=== PATIENT | female | born 1925 | race Caucasian/White ===

== ENCOUNTER 2016-07-05 14:36 | Emergency (ER) | payer OTHER ==
--- NOTE | 2016-07-05 15:26 | DIAGNOSTIC IMAGING REPORT ---
PROCEDURE: XR CHEST 1 VIEW INDICATION: COUGH TECHNIQUE: Portable AP view 3:14 p.m. COMPARISON: Chest 03/13/2014 08/02/2012 12/04/2011 and 09/19/2011 FINDINGS: Mild cardiomegaly and pulmonary vascular congestion with borderline/mild interstitial changes. No acute infiltrates. IMPRESSION: 1. Mild cardiomegaly and borderline/mild congestive heart failure. 2. No acute infiltrates
--- NOTE | 2016-07-05 16:48 | ED ORDER SUMMARY ---
..... Patient: SASCHA DUNN OrderSheet [facility] VisitID: [id number] [address] [place] [address] 89y, F Registration Date/Time: 07/05/2016 ORDER SHEET Weight: 69.3 kg (stated) Allergies: Iodine, Novacaine GENERAL ORDERS: Chest 1V Urgent (14:57 07/05/2016 Augusta MOORE) (Ack 15:07 Lisa) (16:44 ASchmuck) Spindraw Operator (Continuous) (14:57 07/05/2016 Augusta MOORE) (15:08 ASchmuck) CBC w Diff Urgent (14:57 07/05/2016 Augusta MOORE) (Ack 15:07 Lisa) (15:08 ASchmuck) CMP Urgent (14:57 07/05/2016 Augusta MOORE) (Ack 15:07 Lisa) (15:08 ASchmuck) UA-Culture if indicated Urgent (14:57 07/05/2016 Augusta MOORE) (Ack 15:07 Lisa) (15:08 ASchmuck) Amylase Urgent (14:57 07/05/2016 Augusta MOORE) (Ack 15:07 Lisa) (15:08 ASchmuck) Lipase Urgent (14:57 07/05/2016 Augusta MOORE) (Ack 15:07 Lisa) (15:08 ASchmuck) CPK Urgent (14:57 07/05/2016 Augusta MOORE) (Ack 15:07 Lisa) (15:08 ASchmuck) Troponin-I Urgent (14:57 07/05/2016 Augusta MOORE) (Ack 15:07 Lisa) (15:08 ASchmuck) BNP Urgent (14:57 07/05/2016 Augusta MOORE) (Ack 15:07 Lisa) (15:08 ASchmuck) Pulse oximeter (14:57 07/05/2016 Augusta MOORE) (15:08 ASchmuck) EKG - ER Stat (14:57 07/05/2016 Augusta MOORE) (15:40 LTapper) MEDICATION ORDERS: Clonidine PO 0.2 mg (NOW) (16:41 07/05/2016 Augusta MOORE) (Ack 16:44 ASchmuck) (16:54 ASchmuck) IV FLUIDS: IV Saline Lock (14:57 07/05/2016 Augusta MOORE) (15:08 ASchmuck) Lasix IV 20 mg (NOW) (16:41 07/05/2016 Augusta MOORE) (Ack 16:44 ASchmuck) (16:55 ASchmuck) ORDER SHEET NOTES: [Electronically signed by Tucker Baker MD (18:38 07/05/2016)] [Electronically signed by Mike Lennon R.N. (19:07 07/05/2016)] [Electronically locked/signed by Mike Lennon R.N. (19:07 07/05/2016)]
--- NOTE | 2016-07-05 16:48 | ED NURSING NOTES ---
Clinical Report - Nurses [place] [address] [place] [address] 07/05/2016 14:37 Patient: SASCHA DUNN TRIAGE Triage time 14:40. Acuity: LEVEL 3. Chief Complaint: WEAKNESS and COUGH. Alert. No acute distress. MARIZOL COMA SCORE: Marizol Coma Scale: 15- eyes open spontaneously (4); best verbal response- oriented x 4 (5); best motor response- obeys commands (6). --14:47 Yasmine Burgess R.N. 14:40 07/05/16. BP: 172/72. HR: 78. RR: 21. O2 saturation: 100% on room air. Temp: 98.2 F (oral). Pain level now: cannot qualify. --14:47 Yasmine Burgess R.N. Weight: 69.3 kg stated. Height/Length: 63 inches Per Patient. BMI: 27.1. --14:44 Yasmine Burgess R.N. Medications AmLODIPine Besylate Oral 2.5 mg, 1-2 times daily. --15:41 Rhonda Wing Aspir-81 Oral (Tablet Delayed Release 81 mg) 1 tablet, daily. --15:42 Rhonda Wing Calcium + D3 Oral. --15:46 Rhonda Wing Furosemide Oral 40 mg, daily. --15:47 Rhonda Wing Glucosamine Oral (unknown dose). --15:47 Rhonda Wing Irbesartan Oral 300 mg (1/2-1 tab daily). --15:47 Rhonda Wing Metolazone Oral (Tablet 2.5 mg), daily. --15:48 Rhonda Wing Potassium Oral 10 mEq, daily. --15:48 Rhonda Wing Tylenol Oral 325 mg, daily. --15:49 Rhonda Wing CloNIDine HCl Oral. --16:31 Tucker Baker MD The following entry was struck by Tucker Baker MD, 16:31 (07/05/16) Reason - other. <<STRICKEN ENTRY-- Anastrozole Oral (Tablet 1 mg) 1 tablet, daily. --15:41 Rhonda Wing --END STRIKE>> The following entry was struck by Tucker Baker MD, 16:31 (07/05/16) Reason - other. <<STRICKEN ENTRY-- Sertraline HCl Oral 25 mg, daily. --15:49 Rhonda Wing --END STRIKE>>. Allergies Iodine. Definite Moderate(rash) Novacaine . Definite Moderate(rash) --14:42 Yasmine Burgess R.N. History Arrived by private vehicle. Historian: EMS and patient. Primary physician (Claudia). Onset. (about 2 weeks to 2 months). She has had a cough. SOCIAL HX: Smoker- current status unknown (no). No alcohol use or drug use. LEARNING NEEDS ASSESSMENT: The learning needs assessment revealed no barriers. FALL RISK ASSESSMENT: Fall risk assessment completed. Risk factors identified include patient age greater than 65 years and impairment of mobility and hearing. Fall interventions initiated. Patient placed on stretcher. Side rails up x2. Brakes on Bed in low position. FUNCTIONAL ASSESSMENT: Functional assessment performed: independent with the activities of daily living; mobility impairment present- this mobility impairment is an ongoing problem; hearing impairment present- this hearing impairment is an ongoing problem. --14:47 Yasmine Burgess R.N. PROBLEMS: Herpes Zoster. Sinus Tachycardia. Abnormal Test. Breast Cancer. Hyperkalemia. Hyponatremia. UTI - Urinary Tract Infection. Dehydration. Renal Insufficiency. Heart Disease. Palpitations. Gastroesophageal Reflux. Hypertension. Immunizations. --14:43 Yasmine Burgess R.N. Congestive Heart Failure. Tricuspid valve disorder. Depression. Basal cell carcinoma of skin. Post herpatic polyneuropathy. Bipolar Disorder. --15:51 Rhonda Wing. ADDITIONAL SURGERIES: Appendectomy. Eyes cataracts. Hysterectomy. Lumpectomy of breast. Tonsillectomy. --14:43 Yasmine Burgess R.N. Assessment GENERAL / NEURO / PSYCH: Alert. Oriented X 4. Appears in no acute distress. Patient appears calm and cooperative. RESPIRATORY: Respirations not labored. CVS: Cardiac rhythm: sinus rhythm; occasional ectopic beats. --14:47 Yasmine Burgess R.N. Interventions ID and allergy band on patient. To treatment room. --14:47 Yasmine Burgess R.N. PHYSICAL ASSESSMENT 15:10 07/05/16. To room via stretcher. Patient gowned. GENERAL / NEURO / PSYCH: Alert. Oriented X 4. Appears in no acute distress. HEENT: Pupils equal, round and reactive to light. No facial asymmetry noted. Mucous membranes are pink. RESPIRATORY: Respirations not labored. Chest nontender. CVS: Capillary refill less than 2 seconds. Pulses within normal limits. GI / : Abdomen soft and nontender and normal bowel sounds. SKIN: Skin intact. Skin is warm and dry. Normal skin turgor. --15:10 Rhonda Wing. NURSING PROGRESS NOTES 14:53 07/05/2016 Site #1 started via IV in the left antecubital space with an 20g angiocath, with aseptic technique and good blood return; one attempt. Blood drawn: rainbow set. Labeled in the presence of the patient and sent to the lab. Saline lock flushed with 10 mL saline. --14:53 Rhonda Wing 15:07/05/16. The plan of care for this patient has been created. air sampling and monitoring, pulse oximeter and NIBP monitor placed on patient; rn cardiac rehab- Lead II and V5; monitor alarms on. Patient gowned. Head of bed elevated. Reassurance given. Patient ID band checked for patient name and birthdate: patient confirmed. Catheterized urine collected with return of yellow-colored clear urine; sample sent to lab. Specimen labeled in the presence of the patient (Done with Janel Marion RN). Two patient identifiers checked. Call light placed in reach. Side rails up x 1. Bed placed in lowest position. Brakes of bed on. Patient ready for evaluation- chart flagged and ED physician notified. --15:09 Rhonda Wing 15:10 07/05/16. Portable chest x-ray performed and shown to the ED physician. ( Patient's daughter is at bedside.). --15:10 Rhonda Wing 15:40 07/05/16. BP: 174/68. HR: 74. O2 saturation: 95%. --15:40 Rhonda Wing EKG time: (15:37). EKG was performed by a tech and shown to the ED physician. --16:11 Rihc Ace 16:54 07/05/2016 Clonidine PO Tablets 0.2 mg given. Allergies verified and confirmed 5 rights. --16:54 Rhonda Wing 16:55 07/05/2016 Lasix IVP 20 mg given over 2 minute(s) via site #1. Allergies verified and confirmed 5 rights. IV patency established. IV site checked: no pain, redness, or swelling. IV flushed thoroughly pre- and post-medication administration. IVP given by RN. --16:55 Rhonda Wing 16:56 07/05/16. BP: 172/67. HR: 79. RR: 20. O2 saturation: 97%. Temp: 97.8 F. Pain level now 0/10. --16:56 Rhonda Wing 17:06 07/05/16. ( Pt assisted to bedside commode with RN.). --17:06 Rhonda Wing 17:08 07/05/16. Care transferred and report given (Mike Lares, RN). --17:08 Rhonda Wing 17:00 07/05/16. BP: 178/71. HR: 82. RR: 19. O2 saturation: 98% on room air. Pain level now: 0/10. --19:06 Mike Lennon R.N. DISPOSITION / DISCHARGE 17:40 07/05/16. BP: 131/55. HR: 71. RR: 16. O2 saturation: 98% on room air. Temp: 98.2 F (oral). Pain level now: 0/10. --18:58 Mike Lennon RoTri Departure time: 1744. --18:59 Mike Lennon R.N. 17:45. No learning barriers present. Discharge instructions provided and reviewed with the patient. Reviewed medication(s) (continue your usual medications). Reviewed referral to family practice for followup. Patient and family verbalized understanding. Written instructions provided in Arabic. The patient was discharged by the physician. She was discharged home and accompanied by family. She left the Emergency Department ambulatory and via private vehicle. Family member driving. --19:02 Mike Lennon R.N. Locked/Released at 07/05/2016 19:07 by Mike Lennon R.N.
--- NOTE | 2016-07-05 16:48 | ED CLINICAL REPORT ---
Clinical Report - Physicians/Mid Levels [facility] [address] [place] [address] 07/05/2016 14:37 Patient: SASCHA DUNN Time Seen: 14:56. Arrived- By private vehicle. Historian- patient. HISTORY OF PRESENT ILLNESS Chief Complaint: WEAKNESS. This started about 2 days ago and is now gone. It was gradual in onset and has been intermittent. No weight loss or headache. She has had fatigue and generalized weakness. REVIEW OF SYSTEMS No chills, fever, sweats, calf pain or chest pain. No difficulty breathing, palpitations, abdominal pain, constipation or diarrhea. No nausea, vomiting or urinary problems. She has had a moderate cough productive of yellow sputum. She has had moderate pedal edema. It has been similar to previous symptoms. She has had mildly altered mental status reported by family: confused. (recently - gone today). All systems otherwise negative, except as recorded above. PAST HISTORY PCP - Claudia. Problems: Congestive Heart Failure. Tricuspid valve disorder. Depression. Basal cell carcinoma of skin. Post herpatic polyneuropathy. Bipolar Disorder. Herpes Zoster. Sinus Tachycardia. Breast Cancer. Hyperkalemia. Hyponatremia. UTI - Urinary Tract Infection. Dehydration. Renal Insufficiency. Heart Disease. Palpitations. Gastroesophageal Reflux. Hypertension. Additional Surgeries: Appendectomy. Eyes cataracts. Hysterectomy. Lumpectomy of breast. Stapes. Tonsillectomy. Medications: CloNIDine HCl Oral. Tylenol Oral 325 mg, daily. Potassium Oral 10 mEq, daily. Metolazone Oral (Tablet 2.5 mg), daily. Irbesartan Oral 300 mg (1/2-1 tab daily). Glucosamine Oral (unknown dose). Furosemide Oral 40 mg, daily. Calcium + D3 Oral. Aspir-81 Oral (Tablet Delayed Release 81 mg) 1 tablet, daily. AmLODIPine Besylate Oral 2.5 mg, 1-2 times daily. Allergies: Iodine. Definite Moderate(rash) Novacaine . Definite Moderate(rash). SOCIAL HISTORY Never smoker. No alcohol use or drug use. Is a local resident. Resides in a house. She lives alone. Has good social support. FAMILY HISTORY Cancer in first-degree relative (mother, father and sibling). ADDITIONAL NOTES The nursing notes have been reviewed. PHYSICAL EXAM Vital Signs: 07/05/2016 14:40 BP: 172/72. HR: 78. RR: 21. O2 saturation: 100%. Temp: 98.2 F. Have been reviewed. Appearance: Alert. Anxious. Eyes: Pupils equal, round and reactive to light. ENT: Pharynx normal. Neck: Normal inspection. Soft left-sided carotid bruit present (this may be a projected cardiac murmur). Neck supple. No JVD. CVS: 2/6 systolic murmur. Respiratory: No respiratory distress. Breath sounds normal. Abdomen: No visible injury. Soft and nontender. Bowel sounds normal. No organomegaly. No mass. Skin: Skin warm and dry. Normal skin color. Normal skin turgor. Extremities: Bilateral mild pitting edema of the lower extremities. No calf tenderness. Neuro: No motor deficit. No sensory deficit. LABS, X-RAYS, AND EKG EKG: Rate: 71. Left anterior fascicular block. Q waves in lead V1, V2 and V3. EKG unchanged when compared with prior EKG. (14 Mar 2014). Chest X-ray: (IMPRESSION: 1. Mild cardiomegaly and borderline/mild congestive heart failure. 2. No acute infiltrates). The X-rays were interpreted by the radiologist and contemporaneously by me. Laboratory Tests: UA-Culture if indicated: (RITU: 07/05/2016 15:07) ( MsgRcvd 07/05/2016 15:36) Final results Test Result Flag Units (Reference) URINE COLOR YELLOW URINE APPEARANCE CLEAR URINE GLUCOSE NEGATIVE (NEGATIVE) URINE BILIRUBIN NEGATIVE (NEGATIVE) URINE KETONE NEGATIVE (NEGATIVE) URINE SPECIFIC GRAVITY <= 1.005 L (1.010-1.030) URINE PH 6.0 (5.0-8.0) URINE PROTEIN NEGATIVE (NEGATIVE) URINE UROBILINOGEN 0.2 EU/dL (0.2-1.0) URINE NITRITE NEGATIVE (NEGATIVE) URINE BLOOD NEGATIVE (NEGATIVE) URINE LEUK ESTERASE NEGATIVE (NEGATIVE) URINE RBC NONE SEEN rbc/hpf (0-1) URINE WBC RARE wbc/hpf (0-1) URINE EPITHELIAL CELLS 0-1 EPI/hpf (0-5) URINE BACTERIA NONE SEEN (NONE SEEN) URINE COMMENT CULT NOT INDICATED URINE CULTURES ARE SET-UP BASED ON THE FOLLOWING CRITERIA:POSITIVE NITRITEPOSITIVE LEUKOCYTE ESTERASEGREATER THAN 10 WHITE BLOOD CELLSMODERATE (2+) OR GREATER BACTERIA CBC w Diff: (RITU: 07/05/2016 14:51) ( [facility] 07/05/2016 15:12) Final results Test Result Flag Units (Reference) WHITE BLOOD COUNT 6.6 K/uL (4.5-11.5) RED BLOOD COUNT 4.12 M/uL (4.00-5.20) HEMOGLOBIN 11.7 L gm/dL (12.0-16.0) HEMATOCRIT 35.3 L % (36.0-46.0) MEAN CELL VOLUME 86 fL (80-100) MEAN CORPUSCULAR HGB 28 pg (26-34) MEAN CORPUSCULAR HGB CONC 33 g/dL (31-37) RED CELL DISTRIBUTION WIDTH 13.9 % (11.6-14.8) PLATELET COUNT 199 K/uL (150-400) NEUTROPHIL % 67.2 % (50-75) LYMPH % 20.4 L % (25-40) MONO % 9.5 % (3-14) EOSINOPHIL % 2.6 % (0-4) BASOPHIL % 0.3 % (0-2) BNP: (RITU: 07/05/2016 14:51) ( [facility] 07/05/2016 15:35) Final results Test Result Flag Units (Reference) B-TYPE NATRIURETIC PEPTIDE 419 H pg/ml (5-100) CMP: (RITU: 07/05/2016 14:51) ( [facility] 07/05/2016 15:18) Final results Test Result Flag Units (Reference) GLUCOSE 109 mg/dL (70-110) BUN 32 H mg/dL (7-18) CREATININE 1.4 H mg/dL (0.6-1.3) Estimated GFR 37.72 mL/min Estimated GFR- 45.71 mL/min Note: Persistent reduction over 3 months in eGFR<60 mL/min/1.73 m2 defines CKD. Patients with eGFR values>=60 mL/min/1.73 m2 may also have CKD if evidence ofpersistent proteinuria. Additional information may be foundat www.kidney.org. SODIUM 131 L mmol/L (136-145) POTASSIUM 4.9 mmol/L (3.5-5.1) CHLORIDE 95 L mmol/L (98-107) CARBON DIOXIDE 27 mmol/L (21-32) CALCIUM 9.5 mg/dL (8.5-10.1) TOTAL PROTEIN 7.4 g/dL (6.4-8.2) ALBUMIN 3.9 g/dL (3.3-5.0) BILIRUBIN, TOTAL 0.8 mg/dL (0.0-1.0) ALKALINE PHOSPHATASE 138 H U/L (46-116) AST (SGOT) 53 H U/L (15-37) ALT (SGPT) 64 U/L (12-78) LIPASE 331 U/L (73-393) AMYLASE 96 U/L (25-115) CPK 80 U/L (24-260) TROPONIN I <0.05 ng/mL (0.00-1.5) TROPONIN REFERENCE RANGE:<0.1 NEGATIVE0.1-1.5 INDETERMINANT>1.5 POSITIVE . PROGRESS AND PROCEDURES Discussed case with patient's primary care provider, (Claudia). Reviewed test results and need for additional work-up. Health care provider will see patient in office. Patient/family counseled. Old medical records reviewed. Disposition: Discharged. Condition: stable. CLINICAL IMPRESSION Congestive heart failure Renal insufficiency. Hypertension. INSTRUCTIONS Warnings: Further evaluation is necessary. GENERAL WARNINGS: Return or contact your physician immediately if your condition worsens or changes unexpectedly, if not improving as expected, or if other problems arise. Your Current Medications: CONTINUE TAKING THE FOLLOWING MEDICATIONS: AmLODIPine Besylate Oral : 2.5 mg 1-2 times daily. Aspir-81 Oral : Tablet Delayed Release 81 mg, 1 tablet daily. Calcium + D3 Oral. CloNIDine HCl Oral. Furosemide Oral : 40 mg daily. Glucosamine Oral : unknown dose. Irbesartan Oral : 300 mg, 1/2-1 tab daily. Metolazone Oral : Tablet 2.5 mg, daily. Potassium Oral : 10 mEq daily. Tylenol Oral : 325 mg daily. Understanding of the discharge instructions verbalized by patient and family. Follow-up with: Geo Taylor MD, [facility], , [facility], [address] [address] Follow up tomorrow. Call for the next available appointment. (Electronically signed by Tucker Baker MD 07/05/2016 18:38)
--- NOTE | 2016-07-05 16:48 | ED ORDER SUMMARY ---
..... Patient: SASCHA DUNN OrderSheet [facility] VisitID: [id number] [address] [place] [address] 89y, F Registration Date/Time: 07/05/2016 ORDER SHEET Weight: 69.3 kg (stated) Allergies: Iodine, Novacaine GENERAL ORDERS: Chest 1V Urgent (14:57 07/05/2016 Augusta MOORE) (Ack 15:07 Lisa) (16:44 ASchmuck) Shirt Marker (Continuous) (14:57 07/05/2016 Augusta MOORE) (15:08 ASchmuck) CBC w Diff Urgent (14:57 07/05/2016 Augusta MOORE) (Ack 15:07 Lisa) (15:08 ASchmuck) CMP Urgent (14:57 07/05/2016 Augusta MOORE) (Ack 15:07 Lisa) (15:08 ASchmuck) UA-Culture if indicated Urgent (14:57 07/05/2016 Augusta MOORE) (Ack 15:07 Lisa) (15:08 ASchmuck) Amylase Urgent (14:57 07/05/2016 Augusta MOORE) (Ack 15:07 Lisa) (15:08 ASchmuck) Lipase Urgent (14:57 07/05/2016 Augusta MOORE) (Ack 15:07 Lisa) (15:08 ASchmuck) CPK Urgent (14:57 07/05/2016 Augusta MOORE) (Ack 15:07 Lisa) (15:08 ASchmuck) Troponin-I Urgent (14:57 07/05/2016 Augusta MOORE) (Ack 15:07 Lisa) (15:08 ASchmuck) BNP Urgent (14:57 07/05/2016 Augusta MOORE) (Ack 15:07 Lisa) (15:08 ASchmuck) Pulse oximeter (14:57 07/05/2016 Augusta MOORE) (15:08 ASchmuck) EKG - ER Stat (14:57 07/05/2016 Augusta MOORE) (15:40 LTapper) MEDICATION ORDERS: Clonidine PO 0.2 mg (NOW) (16:41 07/05/2016 Augusta MOORE) (Ack 16:44 ASchmuck) (16:54 ASchmuck) IV FLUIDS: IV Saline Lock (14:57 07/05/2016 Augusta MOORE) (15:08 ASchmuck) Lasix IV 20 mg (NOW) (16:41 07/05/2016 Augusta MOORE) (Ack 16:44 ASchmuck) (16:55 ASchmuck) ORDER SHEET NOTES: [Electronically signed by Tucker Baker MD (18:38 07/05/2016)] [Electronically signed by Mike Lennon R.N. (19:07 07/05/2016)] [Electronically locked/signed by Mike Lennon R.N. (19:07 07/05/2016)]
--- NOTE | 2016-07-05 19:07 | ED MAR SUMMARY ---
..... Medication Administration Record [facility] [address] [place] [address] Patient: SASCHA DUNN Visit ID: [id number] 89y, F Weight: 69.3 kg Height/Length: 63 in BMI: 27.1 ALLERGIES: Iodine, Novacaine Given 16:54 07/05/2016 Rhonda Wing, Medication Administered: CLONIDINE [PO], Dose: 0.2 mg Tablets PO. Medication Ordered: Clonidine PO 0.2 mg (NOW). Given 16:55 07/05/2016 Rhonda Wing, Medication Administered: LASIX [IVP], Dose: 20 mg IVP over 2 minute(s), Site: #1 left AC. Medication Ordered: Lasix IV 20 mg (NOW).
--- NOTE | 2016-07-05 19:07 | ED MED RECONCILIATION SUMMARY ---
Patient: SASCHA DUNN Medication Reconciliation Report [facility] VisitID: [id number] [address] [place] [address] 89y, F Registration Date/Time: 07/05/2016 Weight: 69.3 kg Height/Length: 63 in. BMI: 27.1 ALLERGIES: Iodine, Novacaine The patient's Home Medications are listed below: CONTINUE TAKING THE FOLLOWING MEDICATIONS: AmLODIPine Besylate Oral 2.5 mg, 1-2 times daily Aspir-81 Oral (81 mg) 1 tablet, daily Calcium + D3 Oral CloNIDine HCl Oral Furosemide Oral 40 mg, daily Glucosamine Oral, unknown dose Irbesartan Oral 300 mg, 1/2-1 tab daily Metolazone Oral (2.5 mg), daily Potassium Oral 10 mEq, daily Tylenol Oral 325 mg, daily The source(s) of the original Home Medication information: Not obtained. The following Medications were given to the patient in the Emergency Department: Clonidine [PO] PO 0.2 mg, administered: 07/05/2016 4:54:00 PM Lasix [IVP] IVP 20 mg, administered: 07/05/2016 4:55:00 PM The following Medications were prescribed to the patient: None.
--- NOTE | 2016-07-05 19:07 | ED MED RECONCILIATION SUMMARY ---
Patient: SASCHA DUNN Medication Reconciliation Report [facility] VisitID: [id number] [address] [place] [address] 89y, F Registration Date/Time: 07/05/2016 Weight: 69.3 kg Height/Length: 63 in. BMI: 27.1 ALLERGIES: Iodine, Novacaine The patient's Home Medications are listed below: CONTINUE TAKING THE FOLLOWING MEDICATIONS: AmLODIPine Besylate Oral 2.5 mg, 1-2 times daily Aspir-81 Oral (81 mg) 1 tablet, daily Calcium + D3 Oral CloNIDine HCl Oral Furosemide Oral 40 mg, daily Glucosamine Oral, unknown dose Irbesartan Oral 300 mg, 1/2-1 tab daily Metolazone Oral (2.5 mg), daily Potassium Oral 10 mEq, daily Tylenol Oral 325 mg, daily The source(s) of the original Home Medication information: Not obtained. The following Medications were given to the patient in the Emergency Department: Clonidine [PO] PO 0.2 mg, administered: 07/05/2016 4:54:00 PM Lasix [IVP] IVP 20 mg, administered: 07/05/2016 4:55:00 PM The following Medications were prescribed to the patient: None.
--- NOTE | 2016-07-05 19:07 | ED DISCHARGE INSTRUCTIONS ---
Patient: SASCHA DUNN [facility] VisitID: [id number] [address] [place] [address] 89y, F Registration Date/Time: 07/05/2016 Congestive heart failure Renal insufficiency. Hypertension. INSTRUCTIONS Warnings: Further evaluation is necessary. GENERAL WARNINGS: Return or contact your physician immediately if your condition worsens or changes unexpectedly, if not improving as expected, or if other problems arise. Your Current Medications: CONTINUE TAKING THE FOLLOWING MEDICATIONS: AmLODIPine Besylate Oral : 2.5 mg 1-2 times daily. Aspir-81 Oral : Tablet Delayed Release 81 mg, 1 tablet daily. Calcium + D3 Oral. CloNIDine HCl Oral. Furosemide Oral : 40 mg daily. Glucosamine Oral : unknown dose. Irbesartan Oral : 300 mg, 1/2-1 tab daily. Metolazone Oral : Tablet 2.5 mg, daily. Potassium Oral : 10 mEq daily. Tylenol Oral : 325 mg daily. Understanding of the discharge instructions verbalized by patient and family. Follow-up with: Geo Taylor MD, [facility], , [facility], [address] [facility] [address] [place] [address] Follow up tomorrow. Call for the next available appointment. ADDITIONAL INFORMATION Heart Failure (Left Or Right Sided) The heart is a large muscle that pumps blood throughout the body. Blood carries oxygen to all the organs, muscles, and skin of your body. After the body takes the oxygen out of the blood, the blood returns to the heart. The right side of the heart collects that blood and pumps it to the lungs to receive fresh oxygen. This oxygen-rich blood from the lungs then returns to the left side of the heart where it is pumped back out to the rest of the body, starting the process all over. Heart Failure (HF) occurs when the heart muscle is weakened. This affects the pumping action of the heart. When the right side of the heart is weakened, it cant handle the blood it is receiving from the rest of the body. This blood returns to the heart through veins. When too much pressure builds up in the veins fluid leaks out into the tissues. [place] then causes that fluid to spread to those parts of the body that are the lowest. Therefore, one of the first symptoms of HF include swelling in the feet and ankles. If the condition worsens, the swelling can even go up past the knees. When the left side of the heart is weakened, it cant handle the blood it is receiving from the lungs. Pressure then builds up in the veins of the lungs, causing fluid to leakinto the lung tissues. This may be referred to as congestive heart failure.This causes you to feel short of breath, weak, or dizzy. These symptoms are often worse with exertion, such as climbing stairs or walking up hills. Lying flat is uncomfortable and can make your breathing worse. This may make sleeping difficult and force you to useextra pillows to sleep well. This condition may not only affect the right side of the heart or only the left side. While it may have started on one side, it often affects both sides. Causes of heart failure Coronary artery disease Prior heart attack (also known as acute myocardial infarction, or AMI) High blood pressure Damaged heart valve Diabetes Obesity Cigarette smoking Alcohol abuse Treatment Heart failure is a chronic condition. There is no cure. The purpose of medical treatment is to improve the pumping action of the heart, and remove excess water from the body. A number of medications can help achieve this goal,improvesymptoms and prevent the heart from becoming weaker. Another major goal is to better treat the caues of heart failure, such as diabetes, high blood pressure, and your lifestyle. Home care Check your weight every day. A sudden increase in weight gain could mean worsening heart failure. Use the same scale every day Weigh yourself at the same time every day Make sure the scale is on the floor, not on a rug Keep a record of your weight every day, so your doctor can see it. If you are not given a log sheet for this, keep a separate journal for this purpose. Reduce your salt (sodium) intake. Avoid high-salt foods (olives, pickles, smoked meats, salted potato chips, etc.). Do not add salt to your food at the table and use only small amounts of salt when cooking. Follow your doctors recommendations about how much fluid intake is safe. Stop smoking. Reduce alcohol use. Lose weight if you are overweight. The excess weight adds a lot of stress on the workload of the heart. Stay active. Talk to your doctor about an exercise program that is safe for your heart. Keep your feet elevated to reduce swelling. Ask your doctor about support hose as a preventive treatment for daytime leg swelling. Besides taking your medicine as instructed, an important part of treatment includes lifestyle changes such as diet, physical activity, stopping smoking, and weight control. Improve your diet. Often in the hospital, people are given a "heart healthy diet." This includes more fresh foods, lower fat, less processed foots, and lower salt. Follow-up care Follow up with your doctor as directed by our staff. Make sure to keep any appointments that were made for you as this can help better control heart failure. If an X-ray was done, you will be notified of any new findings that may affect your care. Call 911 Call 911 if you: Become severely short of breath Feel lightheaded, or feel like you might pass out or faint Have chest pain or discomfort that is different than usual, the medicines your doctor told you to use for this do not help, or the pain lasts longer than 10 to 15 minutes Suddendly develop a rapid heart rate When to seek medical care Get prompt medical attention if you have any of the following signs of worsening heart failure: Sudden weight gain (3or more pounds in one day or5or more pounds in one week) Trouble breathing not related to being active New or increased swelling of your legs or ankles Swelling or pain in your abdomen Breathing trouble at night (waking up short of breath, needing more pillows to breathe) Frequent coughing that doesnt go away Feeling much more tired than usual Renal Insufficiency The role of the kidneys is to remove waste products and excess water from the body. When the kidneys do not function normally, waste products build up in the blood.The early stage of this process is called renal insufficiency . If renal insufficiency worsens it can lead to chronic renal failure. This allows excess water, waste and toxic substances to build up in the body. This can become a threat to life, requiring dialysis or a kidney transplant to stay alive. Diabetes is the leading causes of renal insufficiency. Other causes include high blood pressure, hardening of the arteries, lupus, inflammation of the blood vessels (vasculitis), prior viral and bacterial infections, and others. Certain [id number] pain medicines can cause renal failure when taken often over a long period of time. These include aspirin, ibuprofen (Advil, Motrin) and related anti-inflammatory medicines. Home Care: If you have diabetes, talk to your doctor about the quality of your blood sugar control.Ask about any changes needed to your diet or medicines. If you have high blood pressure: Take your blood pressure medicine. Take up a regular exercise program that you enjoy.Check with your doctor to be sure your planned exercise program is right for you. Reduce your salt (sodium) intake.Your doctor can tell you how much salt per day is safe for you. If you are overweight, talk to your doctor about a weight loss plan. If you smoke, you must quit.Smoking worsens kidney disease.Talk to your doctor about ways to help you quit.For more information, visit the following links: www.smokefree.gov/pubs/clearing_the_air.pdf www.smokefree.gov www.[employer].com Talk to your doctor about any dietary restrictions advised. In general, it is advisable to limit protein, salt, potassium and phosphorus.Avoid excess fluids. Do not add salt at the table and avoid salty foods.A calcium supplement may be prescribed to protect your bones from osteoporosis. Avoid the following over the counter medicines, or consult your doctor before using: Aspirin and anti-inflammatory drugs such as ibuprofen (Advil, Motrin), naprosyn (Aleve); [Short term use of acetaminophen (Tylenol) for fever or pain is okay.] Laxatives and antacids containing magnesium or aluminum (Mylanta, Maalox) Avoid Fleet or phosphosoda enemas which contain phosphorus Certain stomach acid-blocking medicine such as cimetidine (Tagamet), ranitidine (Zantac) Decongestants containing pseudoephedrine (such as some forms of Sudafed or Actifed) Herbal supplements Follow Up with your doctor or as advised by our staff. Contact one of the following for more information. [place] [phone] www.aakp.org National Kidney Foundation www.kidney.org Return Promptly or contact your doctor if any of the following occurs: Nausea or vomiting Severe weakness, dizziness, fainting, drowsiness or confusion Chest pain or shortness of breath Unexpected weight gain or swelling in the legs, ankles or around the eyes Heart beating fast, slow or irregularly Decrease or loss in urine output Hypertension, Out Of Control (Established) Your blood pressure was unusually high today. This can occur as a result of missing doses of your blood pressure medicine. Some asthma inhalers, decongestants, diet pills, and street drugs such as cocaine and amphetamine can worsen hypertension. An increase in body weight, increase in salt intake, smoking, and caffeine are other causes. Emotional upset or acute pain can cause a sudden rapid rise in blood pressure which may return to normal after a period of rest. A normal blood pressure is less than 140/90. The first (top) number is the systolic pressure. The second (bottom) number is the diastolic pressure. Hypertension exists when either the top number is 140 or higher, OR the bottom number is 90 or higher on repeated measurements. Home Care: All patients with high blood pressure should do the following to lower their pressure. If you are on blood pressure medicines, then these methods may reduce or eliminate your need for medicines in the future. Begin a weight-loss program if you are overweight. Reduce your salt intake. Avoid high-salt foods (olives, pickles, smoked meats, salted potato chips, etc.). Do not add salt to your food at the table. Use only small amounts of salt when cooking. Begin an exercise program. Discuss with your doctor what type of exercise program would be best for you. It doesnt have to be difficult. Even brisk walking for 20 minutes3 times a week is a good form of exercise. Avoid medicines which contain heart stimulants. This includes many cold and sinus decongestant pills and sprays as well as diet pills. Check the warnings about hypertension on the label. Stimulants such as amphetamine or cocaine could be lethal for someone with hypertension. Never take these. Limit your caffeine intake or switch to decaf. Stop smoking. If you are a long-time smoker, this can be hard. Enroll in a stop-smoking program to improve your chance of success. Talk to your physician about ways to improve your chance of success. Learning how to handle stress better is an important part of any program to lower blood pressure. Learn about relaxation methods such as meditation, yoga, or biofeedback. If medicines were prescribed, take them exactly as directed. Missing doses may cause your blood pressure to get out of control. Consider buying an automatic blood pressure machine (available at many pharmacies). Use this to monitor your blood pressure and report to your doctor. Follow Up: Regular visits to your own doctor for blood pressure checks and medicine adjustment is an important part of your care. Make a follow-up appointment as directed by our staff. Get Prompt Medical Attention if any of the following occur: Chest, arm, shoulder, neck, or upper back pain Shortness of breath Severe headache Throbbing or rushing sound in the ears Nosebleed Extreme drowsiness, confusion, or fainting Dizziness or vertigo (dizziness with spinning sensation) Weakness of an arm or leg or one side of the face Difficulty with speech or vision You have been given the following additional information: Heart Failure, General Renal Insufficiency Hypertension, Established, Out Of Control (Electronically signed by Tucker Baker MD 07/05/2016 18:38)
--- NOTE | 2016-07-05 19:07 | ED MAR SUMMARY ---
..... Medication Administration Record [facility] [address] [place] [address] Patient: SASCHA DUNN Visit ID: [id number] 89y, F Weight: 69.3 kg Height/Length: 63 in BMI: 27.1 ALLERGIES: Iodine, Novacaine Given 16:54 07/05/2016 Rhonda Wing, Medication Administered: CLONIDINE [PO], Dose: 0.2 mg Tablets PO. Medication Ordered: Clonidine PO 0.2 mg (NOW). Given 16:55 07/05/2016 Rhonda Wing, Medication Administered: LASIX [IVP], Dose: 20 mg IVP over 2 minute(s), Site: #1 left AC. Medication Ordered: Lasix IV 20 mg (NOW).
== END 2016-07-05 17:45 | disposition home or self-care (01) ==
LOC: ED SRH 14:36
DX: I50.9 Heart failure, unspecified (principal); N28.9 Disorder of kidney and ureter, unspecified; I10 Essential (primary) hypertension; K21.9 Gastro-esophageal reflux disease without esophagitis; Z79.899 Other long term (current) drug therapy; Z91.041 Radiographic dye allergy status
CPT/HCPCS: 81460; 90004; 90100; 90616; 91320; 92235; 92530; 92610; 95059

== ENCOUNTER 2016-08-25 08:39 | Inpatient (IN) | payer OTHER ==
[2016-08-25] VITALS (11 sets, daily range): BP systolic 116–168; BP diastolic 34–100
[~2016-08-25] VITALS: Ht 160 cm; Wt 68.6 kg
--- NOTE | 2016-08-25 10:58 | ED NURSING NOTES ---
Clinical Report - Nurses [facility] [address] [place] [address] 08/25/2016 8:39 Patient: SASCHA DUNN TRIAGE Triage time 08:41. Acuity: LEVEL 3. Chief Complaint: ("feeling weak and bad for weeks now."). Alert. No acute distress. ( Pt. states she has had re-occuring URI infections since Apr. She usually is able to get around ok and take care of herself but she is feeling to tired and weak lately she is having a hard time.). SEPSIS SCREEN: Sepsis Screen. Negative (no infection suspected/documented). NATALIE COMA SCORE: [place] Coma Scale: 15- eyes open spontaneously (4); best verbal response- oriented x 4 (5); best motor response- obeys commands (6). --08:46 Aurelia Jang R.N. 08:41 08/25/16. BP: 156/75. HR: 67. RR: 18. O2 saturation: 100%. Temp: 97.9 F. Pain level now 0/10. --08:46 Aurelia Jang R.N. Weight: 70.3 kg stated. Height/Length: 63 inches Per Patient. BMI: 27.5. --08:42 Aurelia Jang R.N. Medications Furosemide Oral 40 mg, daily. --08:44 Idania Umanzor R.N. CloNIDine HCl Oral (Tablet 0.1 mg), daily. Metolazone Oral (Tablet 2.5 mg), as needed. Potassium Oral 10 mEq, 2x a day. --08:44 Idania Umanzor R.N. AmLODIPine Besylate Oral 2.5 mg, 1-2 times daily. Aspir-81 Oral (Tablet Delayed Release 81 mg) 1 tablet, daily. Calcium + D3 Oral. Glucosamine Oral (unknown dose). Irbesartan Oral 300 mg (1/2-1 tab daily). --08:44 Aurelia Jang R.N. meds pulled from prior list daughter to bring in med list. --08:44 Aurelia Jang R.N. MAGOX 800mg, 3x a day. --09:21 Idania Umanzor R.N. The following entry was struck and corrected by Idania Umanzor R.N., 10:44 (08/25/16) Reason for correction - other(correction). <<[facility] ENTRY-- Metolazone Oral (Tablet 2.5 mg), daily. --08:44 Aurelia Jang R.N. --END STRIKE>> The following entry was struck and corrected by Idania Umanzor R.N., 10:38 (08/25/16) Reason for correction - other(correction). <<[facility]-- Potassium Oral 10 mEq, daily. --08:44 Aurelia Jang R.N. --END STRIKE>> The following entry was struck and corrected by Idania Umanzor R.N., 10:37 (08/25/16) Reason for correction - other(correction). <<[facility] ENTRY-- MAGOX. --09:21 Aurelia Jang R.N. --END STRIKE>> The following entry was struck and corrected by Idania Umanzor R.N., 10:34 (08/25/16) Reason for correction - other(correction). <<[facility]-- Furosemide Oral 40 mg, daily (and twice weekly 60mg ). --08:44 Aurelia Jang R.N. --END STRIKE>> The following entry was struck and corrected by Idania Umanzor R.N., 10:33 (08/25/16) Reason for correction - other(correction). <<[facility] ENTRY-- CloNIDine HCl Oral. --08:44 Aurelia Jang R.N. --END STRIKE>> The following entry was struck by Aurelia Jang R.N., 09:21 (08/25/16) Reason - other. <<[facility] ENTRY-- Tylenol Oral 325 mg, daily. --08:44 Aurelia Jang R.N. --END STRIKE>> The following entry was struck and corrected by Aurelia Jagn R.N., 09:20 (08/25/16) Reason for correction - other(correction). <<[facility] ENTRY-- Furosemide Oral 40 mg, daily. --08:44 Aurelia Jang R.N. --END STRIKE>>. Allergies Iodine. Definite Moderate(rash) Novacaine . Definite Moderate(rash) --08:44 Aurelia Jang R.N. History Arrived by EMS. Historian: patient. Unaccompanied. Primary physician (Dr. Taylor). This is a recurrent problem. Treatment DRUM ATTENDANT: None. PAST MEDICAL HX: Immunizations: status is unknown. SOCIAL HX: Never smoker. No alcohol use or drug use. ABUSE ASSESSMENT: Abuse assessment: The patient was asked "Do you feel safe in your home?" and "Has anyone hurt you or threatened to hurt you?". No report of abuse. SELF HARM ASSESSMENT: A self harm assessment was performed. NUTRITIONAL RISK ASSESSMENT: The nutritional risk assessment revealed no deficiencies. FUNCTIONAL ASSESSMENT: Functional assessment: no impairments noted. LEARNING NEEDS ASSESSMENT: The learning needs assessment revealed no barriers. --08:46 Aurelia Jang R.N. FALL RISK ASSESSMENT: Fall risk assessment completed. Risk factors identified include dizziness and patient medications, age greater than 65 years, history of fall and impairment of hearing. Fall interventions initiated. Patient placed on stretcher. Side rails up x2. Brakes on Bed in low position. Patient visible from nurses' station and identified as a fall risk by ID band. Family at bedside. Call light in reach of patient. Instructed not to get up without assistance. --11:07 Aurelia Jang R.N. PROBLEMS: Congestive Heart Failure. Tricuspid valve disorder. Depression. Basal cell carcinoma of skin. Bipolar Disorder. Herpes Zoster. Sinus Tachycardia. Breast Cancer. Hyperkalemia. Hyponatremia. UTI - Urinary Tract Infection. Dehydration. Renal Insufficiency. Heart Disease. Palpitations. Gastroesophageal Reflux. Hypertension. --08:45 Aurelia Jang R.N. Interventions ID band on patient. Transported via stretcher. --08:46 Aurelia Jang R.N. PHYSICAL ASSESSMENT Ambulatory to room. GENERAL / NEURO / PSYCH: Alert. Appears in no acute distress. HEENT: No facial asymmetry noted. Mucous membranes are pink. RESPIRATORY: Respirations not labored. CVS: Capillary refill less than 2 seconds. Pulses within normal limits. GI / : Abdomen soft and nontender. SKIN: Skin intact. Skin is warm and dry. --08:46 Aurelia Jang R.N. 09:59 08/25/16. EXTREMITIES: Sensation intact. Skin is non-tender on the extremities. No upper extremity edema. No lower extremity edema. --09:59 Idania Umanzor R.N. NURSING PROGRESS NOTES bus driver/monitor, pulse oximeter and NIBP monitor placed on patient; environmental monitoring specialist- Lead II; monitor alarms on. Patient gowned. Two patient identifiers checked. Call light placed in reach. Side rails up x 2. Bed placed in lowest position. Brakes of bed on. Patient ready for evaluation- chart flagged. --08:46 Aurelia Jang R.N. EKG time: (08:59). EKG was performed by a tech and shown to the ED physician. --09:03 Crystal Vania 09:14 08/25/2016 One (1) unsuccessful IV access attempt including the left hand. Applied bandaid and manual pressure. --09:14 Aurelia Jang R.N. 09:19 08/25/2016 Site #1 started via IV in the right forearm with an 22g angiocath, with aseptic technique and good blood return; one attempt. Blood drawn: rainbow set and cultures x1. Labeled in the presence of the patient and sent to the lab. Saline lock flushed with 10 mL saline. --09:19 Aurelia Jang R.N. Patient ID band checked for patient name, birthdate and medical record number: patient confirmed. Instructions provided to collect clean catch urine and patient verbalized understanding. Catheterized urine collected with return of yellow-colored clear urine; sample sent to lab for urinalysis. Specimen labeled in the presence of the patient. --09:30 Aurelia Jang R.N. 09:05 08/25/2016 Two (2) unsuccessful IV access attempts including the left antecubital space. Applied bandaid and manual pressure. --09:49 Idania Umanzor R.N. 09:50 08/25/16. ( xray at bedside). --09:50 Idania Umanzor R.N. 09:56 08/25/16. BP: 164/46. HR: 44. RR: 12. O2 saturation: 100%. Pain level now: 0/10. --09:58 Idania Umanzor R.N. 09:58 08/25/16. --09:58 Idania Umanzor R.N. 10:22 08/25/16. Critical value relayed to ED by lab. Critical value received by this RN. Na: 113. Critical value read back. Verified lab result and patient ID. ED physician notifed of critical value. --10:22 Idania Umanzor R.N. <<[facility] ENTRY-- 10:57 08/25/2016 Started bag #1 1000 mL IV Fluids IV NS (Saline); at 60 mL/hr over 6 hour(s) via site #1 via IV pump. Allergies verified and confirmed 5 rights. IV patency established. IV site checked: no pain, redness, or swelling. IV flushed thoroughly pre- and post-medication administration. --11:12 Idania Umanzor R.N. --END STRIKE>> Change to Details. --15:51 Idania Umanzor R.N. ( overview faxed to ICU.). --11:17 Marlen Chew ER Tech1 11:50 08/25/16. BP: 157/46. HR: 47. RR: 13. O2 saturation: 96%. Pain level now: 0/10. --11:53 Idania Umanzor R.N. 10:57 08/25/2016 Started bag #1 1000 IV Fluids IV NS (Saline); at 60 mL/hr over 6 hour(s) via site #1 via IV pump. Allergies verified and confirmed 5 rights. IV patency established. IV site checked: no pain, redness, or swelling. IV flushed thoroughly pre- and post-medication administration (about 90mL infused in ED. IV NS transported with patient to CCU.). --15:51 Idania Umanzor R.N. 11:54 08/25/16. Patient transported to CT by stretcher with nurse and tech. (11:30 AM). Patient returned from CT by stretcher with nurse. (11:40). ( Accompanied patient on stretcher to CT with a monitor. HR remained in the 30s and 40s.). --11:54 Idania Umanzor R.N. 11:55 08/25/16. ( Patient given sandwich.). --11:55 Idania Umanzor R.N. Intake & Output 09:58 08/25/16. Urine: 300 mL, with return of yellow-colored clear urine. --09:58 Idania Umanzor R.N. DISPOSITION / DISCHARGE <<[facility] ENTRY-- late entry - 10:10. Admitted to the Critical Care Unit (10:10 AM). Transported via stretcher by nurse with monitor, IV and O2. Patient's personal items include: purse; items were given to the family and transported with the patient. Collection of belongings was witnessed by 1 nurse. --15:46 Idania Umanzor R.N. --END STRIKE>> Correction --15:47 Idania Umanzor R.N. 15:49 08/25/16. Admitted to the Critical Care Unit (12:00 PM). Transported via stretcher by nurse with monitor, IV and O2. Report was given to a nurse via a phone call. Report included patient's care, treatment, medications, reviewed medication reconcilliation, and condition (including any recent changes or anticipated changes). All questions were answered. Report was acknowledged and care was transferred. (to MAXIM Couch). Bed obtained (301). Patient's personal items include: purse; items were given to the family and transported with the patient. Collection of belongings was witnessed by 1 nurse. --15:49 Idania Umanzor R.N. 11:50 08/25/16. BP: 157/46. HR: 47. RR: 13. O2 saturation: 96%. Pain level now: 0/10. --15:49 Idania Umanzor R.N. Locked/Released at 08/25/2016 19:12 by Idania Umanzor R.N.
--- NOTE | 2016-08-25 10:58 | ED ORDER SUMMARY ---
..... Patient: SASCHA DUNN OrderSheet [facility] VisitID: [id number] [address] [place] [address] 89y, F Registration Date/Time: 08/25/2016 ORDER SHEET Weight: 70.3 kg (stated) Allergies: Iodine, Novacaine GENERAL ORDERS: EKG - ER Stat (08:51 08/25/2016 SReitz R.N. per protocol) (Ack 8:56 LNations ER Tech1) (9:03 RKaruga) UA-Culture if indicated Urgent (08:53 08/25/2016 SReitz R.N. per protocol) (Ack 8:56 LNations ER Tech1) (9:30 SReitz R.N.) Fur Glazer (Continuous) (09:32 08/25/2016 Judson MOORE) (Ack 9:35 LNations ER Tech1) (9:48 RMarsden R.N.) Cardiac Panel Stat (09:32 08/25/2016 Judson MOORE) (Ack 9:35 LNations ER Tech1) (9:48 RMarsden R.N.) BNP Urgent (09:32 08/25/2016 Judson MOORE) (Ack 9:36 LNations ER Tech1) (9:48 RMarsden R.N.) TSH Urgent (09:32 08/25/2016 Judson MOORE) (Ack 9:36 LNations ER Tech1) (9:48 RMarsden R.N.) Oxygen (2 L/min) (NC) (09:32 08/25/2016 Judson MOORE) (Ack 9:35 LNations ER Tech1) (9:52 RMarsden R.N.) Pulse oximeter (09:32 08/25/2016 Judson MOORE) (Ack 9:35 LNations ER Tech1) (9:52 RMarsden R.N.) Chest 1V Urgent (09:33 08/25/2016 Judson MOORE) (Ack 9:36 LNations ER Tech1) (9:48 RMarsden R.N.) CT Head wo Cont Urgent (11:12 08/25/2016 Judson MOORE) (Ack 11:32 LNations ER Tech1) MEDICATION ORDERS: IV FLUIDS: IV Saline Lock (08:53 08/25/2016 Joann Sinha per protocol) (9:19 Joann Sinha) IV NS : initial bolus none -, then 60 ml/hr for 6h (NOW); Routine (10:58 08/25/2016 Judson MOORE) (11:12 Nina Sinha) ORDER SHEET NOTES: [Electronically signed by Idania Umanzor R.N. (19:12 08/25/2016)] [Electronically signed by Leoncio Encinas MD (11:49 08/26/2016)] [Electronically locked/signed by Idania Umanzor R.N. (19:12 08/25/2016)]
--- NOTE | 2016-08-25 10:58 | ED CLINICAL REPORT ---
Clinical Report - Physicians/Mid Levels [facility] [address] [place] [address] 08/25/2016 8:39 [id number] Time Seen: 09:26 Aug 25 2016. Historian- patient. CPT: ER phys charges level 5 plus (#[id number]). EKG interpretation (#[id number]). HISTORY OF PRESENT ILLNESS Chief Complaint: WEAKNESS. Severity described as moderate at its maximum. When seen in the E.D., severity described as moderate. Modifying factors- relieved by nothing. Not worsened by anything. Described as feeling weak all over. This started about 2 weeks [employer] and is still present. The patient has had nausea and mild vomiting. The vomiting has occurred only once. (Diarrhea times 1 today . No blood.). Similar symptoms previously: None. Recent medical care: The patient was seen recently in the office. ( Darrin Savage this last week Dr Taylor yesterday). REVIEW OF SYSTEMS No headache, double vision, fainting episodes, chest pain or palpitations. No black stools, bloody stools, fever, sore throat or difficulty breathing. No abdominal pain, difficulty with urination, skin rash, enlarged lymph nodes or chills. The patient has had weakness, and a cough. She has had difficulty walking. She has had mild diarrhea. This has occurred only once. Daughter notes recent confusion. All systems otherwise negative, except as recorded above. PAST HISTORY ( Congestive Heart Failure. Tricuspid valve disorder. ASD by echo Depression. Basal cell carcinoma of skin. Post herpatic polyneuropathy. Bipolar Disorder. Herpes Zoster. Sinus Tachycardia. Breast Cancer. Hyperkalemia. Hyponatremia. UTI - Urinary Tract Infection. Dehydration. Renal Insufficiency. Heart Disease. Palpitations. Gastroesophageal Reflux. Hypertension. Additional Surgeries: Appendectomy. Eyes cataracts. Hysterectomy. Lumpectomy of breast. Stapes. Tonsillectomy). Medications: MAGOX. meds pulled from prior list daughter to bring in med list. AmLODIPine Besylate Oral 2.5 mg, 1-2 times daily. Aspir-81 Oral (Tablet Delayed Release 81 mg) 1 tablet, daily. Calcium + D3 Oral. CloNIDine HCl Oral. Glucosamine Oral (unknown dose). Irbesartan Oral 300 mg (1/2-1 tab daily). Metolazone Oral (Tablet 2.5 mg), daily. Potassium Oral 10 mEq, daily. Furosemide Oral 40 mg, daily (and twice weekly 60mg ). Allergies: Iodine. Definite Moderate(rash) Novacaine . Definite Moderate(rash). SOCIAL HISTORY Never smoker. No alcohol use or drug use. ADDITIONAL NOTES The nursing notes have been reviewed. PHYSICAL EXAM Vital Signs: 08/25/2016 08:41 BP: 156/75. HR: 67. RR: 18. O2 saturation: 100%. Temp: 97.9 F. Appearance: Alert. No acute distress. Eyes: Pupils equal, round and reactive to light. No nystagmus. Extraocular movements normal. ENT: Normal ENT inspection. TM's normal. Dry mucous membranes present. Pharynx normal. Neck: Normal inspection. Neck supple. CVS: Normal heart rate and rhythm. 2/6 mid systolic murmur located at the left sternal border. Pulses normal. Respiratory: No respiratory distress. Breath sounds normal. Abdomen: Soft and nontender. Back: Normal inspection. Skin: Skin warm. Normal skin color. No rash. Extremities: Extremities exhibit normal ROM. No lower extremity edema. Neuro: Alert. Oriented X 3. Mood/affect normal. Speech normal. Cranial nerves normal (as tested). No cerebellar findings. No motor deficit. No sensory deficit. Reflexes normal. LABS, X-RAYS, AND EKG EKG: Atrial flutter. Chest X-ray: No acute disease. Vascular congestion present. Cardiomegaly. Small left pleural effusion present. No infiltrate. No pulmonary edema. (Vascular congestion, small LLL effusion, cardiomegaly. No acute infiltrate. Right breast clips,). Views: AP (portable). Technique: good. The X-rays were independently viewed by me and interpreted contemporaneously by me. Laboratory Tests: UA-Culture if indicated: (RITU: 08/25/2016 09:30) ( MsgRcvd 08/25/2016 09:57) IP Test Result Flag Units (Reference) URINE COLOR YELLOW URINE APPEARANCE CLEAR URINE GLUCOSE NEGATIVE (NEGATIVE) URINE BILIRUBIN NEGATIVE (NEGATIVE) URINE KETONE NEGATIVE (NEGATIVE) URINE SPECIFIC GRAVITY <= 1.005 L (1.010-1.030) URINE PH 6.5 (5.0-8.0) URINE PROTEIN TRACE (NEGATIVE) URINE UROBILINOGEN 0.2 EU/dL (0.2-1.0) URINE NITRITE NEGATIVE (NEGATIVE) URINE BLOOD TRACE-INTACT (NEGATIVE) URINE LEUK ESTERASE NEGATIVE (NEGATIVE) CBC w Diff: (RITU: 08/25/2016 09:21) ( [facility] 08/25/2016 09:57) Final results Test Result Flag Units (Reference) WHITE BLOOD COUNT 8.3 K/uL (4.5-11.5) RED BLOOD COUNT 4.27 M/uL (4.00-5.20) HEMOGLOBIN 12.2 gm/dL (12.0-16.0) HEMATOCRIT 36.2 % (36.0-46.0) MEAN CELL VOLUME 85 fL (80-100) MEAN CORPUSCULAR HGB 29 pg (26-34) MEAN CORPUSCULAR HGB CONC 34 g/dL (31-37) RED CELL DISTRIBUTION WIDTH 14.3 % (11.6-14.8) PLATELET COUNT 183 K/uL (150-400) NEUTROPHIL % 78.9 H % (50-75) LYMPH % 12.2 L % (25-40) MONO % 8.3 % (3-14) EOSINOPHIL % 0.4 % (0-4) BASOPHIL % 0.2 % (0-2) BNP: (RITU: 08/25/2016 09:21) ( [facility] 08/25/2016 10:26) Final results Test Result Flag Units (Reference) B-TYPE NATRIURETIC PEPTIDE 699 H pg/ml (5-100) CHEM 13 PANEL: (RITU: 08/25/2016 09:21) ( [facility] 08/25/2016 10:22) Final results Test Result Flag Units (Reference) GLUCOSE 128 H mg/dL (70-110) BUN 50 H mg/dL (7-18) CREATININE 1.5 H mg/dL (0.6-1.3) Estimated GFR 34.83 mL/min Estimated GFR- 42.22 mL/min Note: Persistent reduction over 3 months in eGFR<60 mL/min/1.73 m2 defines CKD. Patients with eGFR values>=60 mL/min/1.73 m2 may also have CKD if evidence ofpersistent proteinuria. Additional information may be foundat [email or web address]. SODIUM 113 *L mmol/L (136-145) CRITICAL RESULTS CALLEDCalled to MAXIM SALAZAR,ER 08/25/16 1021Were 2 patient identifiers used? YWas the result read back? Y POTASSIUM 5.7 H mmol/L (3.5-5.1) CHLORIDE 79 L mmol/L (98-107) CARBON DIOXIDE 25 mmol/L (21-32) CALCIUM 9.7 mg/dL (8.5-10.1) TOTAL PROTEIN 7.1 g/dL (6.4-8.2) ALBUMIN 4.1 g/dL (3.3-5.0) BILIRUBIN, TOTAL 0.9 mg/dL (0.0-1.0) ALKALINE PHOSPHATASE 93 U/L (46-116) AST (SGOT) 34 U/L (15-37) ALT (SGPT) 37 U/L (12-78) CPK 138 U/L (24-260) TROPONIN I <0.05 L ng/mL (0.00-1.5) TROPONIN REFERENCE RANGE:<0.1 NEGATIVE0.1-1.5 INDETERMINANT>1.5 POSITIVE THYROID STIMULATING HORMONE 5.463 H uIU/mL (0.30-3.74) MAGNESIUM 1.8 mg/dL (1.8-2.4) . PROGRESS AND PROCEDURES Course of Care: Pt weak due to a combination of hyponatremia, pre-renal azotemia and dehydration as well as intermittent bradycardia in the 30's. Pt not on AV node blockers. Rhythm presently is a-flutter at a rate of 150 with variable block and periods of severe bradycardia. Pt may need a pacemaker. Pt confusion is likely due to hyponatremia but will check CT to r/o other causes of confusion and potential causes for SIADH. IV NS 60 cc per hour. Discussed case with patient's primary care provider, (Claudia). Reviewed test results and need for additional work-up. Agreed upon treatment plan and decision to admit. Orders dictated to other. Health care provider will see patient in hospital. Patient/family counseled. Old medical records ordered. Disposition orders written. Disposition: Admitted to Acute Care. Condition: stable. CLINICAL IMPRESSION Acute generalized weakness. Critical hyponatremia Hyperkalemia Pre-renal azotemia due to dehydration Bradycardia in the 30's Atrial flutter with variable block. (Electronically signed by Leoncio Encinas MD 08/26/2016 11:49)
--- NOTE | 2016-08-25 10:58 | ED ORDER SUMMARY ---
..... Patient: SASCHA DUNN OrderSheet [facility] VisitID: [id number] [address] [place] [address] 89y, F Registration Date/Time: 08/25/2016 ORDER SHEET Weight: 70.3 kg (stated) Allergies: Iodine, Novacaine GENERAL ORDERS: EKG - ER Stat (08:51 08/25/2016 SReitz R.N. per protocol) (Ack 8:56 LNations ER Tech1) (9:03 RKaruga) UA-Culture if indicated Urgent (08:53 08/25/2016 SReitz R.N. per protocol) (Ack 8:56 LNations ER Tech1) (9:30 SReitz R.N.) Emergency Dispatcher (Continuous) (09:32 08/25/2016 Judson MOORE) (Ack 9:35 LNations ER Tech1) (9:48 RMarsden R.N.) Cardiac Panel Stat (09:32 08/25/2016 Judson MOORE) (Ack 9:35 LNations ER Tech1) (9:48 RMarsden R.N.) BNP Urgent (09:32 08/25/2016 Judson MOORE) (Ack 9:36 LNations ER Tech1) (9:48 RMarsden R.N.) TSH Urgent (09:32 08/25/2016 Judson MOORE) (Ack 9:36 LNations ER Tech1) (9:48 RMarsden R.N.) Oxygen (2 L/min) (NC) (09:32 08/25/2016 Judson MOORE) (Ack 9:35 LNations ER Tech1) (9:52 RMarsden R.N.) Pulse oximeter (09:32 08/25/2016 Judson MOORE) (Ack 9:35 LNations ER Tech1) (9:52 RMarsden R.N.) Chest 1V Urgent (09:33 08/25/2016 Judson MOORE) (Ack 9:36 LNations ER Tech1) (9:48 RMarsden R.N.) CT Head wo Cont Urgent (11:12 08/25/2016 Judson MOORE) (Ack 11:32 LNations ER Tech1) MEDICATION ORDERS: IV FLUIDS: IV Saline Lock (08:53 08/25/2016 Joann Sinha per protocol) (9:19 Joann Sinha) IV NS : initial bolus none -, then 60 ml/hr for 6h (NOW); Routine (10:58 08/25/2016 Judson MOORE) (11:12 Nina Sinha) ORDER SHEET NOTES: [Electronically signed by Idania Umanzor R.N. (19:12 08/25/2016)] [Electronically signed by Leoncio Encinas MD (11:49 08/26/2016)] [Electronically locked/signed by Idania Umanzor R.N. (19:12 08/25/2016)]
--- NOTE | 2016-08-25 10:58 | ED NURSING NOTES ---
Clinical Report - Nurses [facility] [address] [place] [address] 08/25/2016 8:39 Patient: SASCHA DUNN TRIAGE Triage time 08:41. Acuity: LEVEL 3. Chief Complaint: ("feeling weak and bad for weeks now."). Alert. No acute distress. ( Pt. states she has had re-occuring URI infections since Apr. She usually is able to get around ok and take care of herself but she is feeling to tired and weak lately she is having a hard time.). SEPSIS SCREEN: Sepsis Screen. Negative (no infection suspected/documented). NATALIE COMA SCORE: [place] Coma Scale: 15- eyes open spontaneously (4); best verbal response- oriented x 4 (5); best motor response- obeys commands (6). --08:46 Aurelia Jang R.N. 08:41 08/25/16. BP: 156/75. HR: 67. RR: 18. O2 saturation: 100%. Temp: 97.9 F. Pain level now 0/10. --08:46 Aurelia Jang R.N. Weight: 70.3 kg stated. Height/Length: 63 inches Per Patient. BMI: 27.5. --08:42 Aurelia Jang R.N. Medications Furosemide Oral 40 mg, daily. --08:44 Idania Umanzor R.N. CloNIDine HCl Oral (Tablet 0.1 mg), daily. Metolazone Oral (Tablet 2.5 mg), as needed. Potassium Oral 10 mEq, 2x a day. --08:44 Idania Umanzor R.N. AmLODIPine Besylate Oral 2.5 mg, 1-2 times daily. Aspir-81 Oral (Tablet Delayed Release 81 mg) 1 tablet, daily. Calcium + D3 Oral. Glucosamine Oral (unknown dose). Irbesartan Oral 300 mg (1/2-1 tab daily). --08:44 Aurelia Jang R.N. meds pulled from prior list daughter to bring in med list. --08:44 Aurelia Jang R.N. MAGOX 800mg, 3x a day. --09:21 Idania Umanzor R.N. The following entry was struck and corrected by Idania Umanzor R.N., 10:44 (08/25/16) Reason for correction - other(correction). <<[facility] ENTRY-- Metolazone Oral (Tablet 2.5 mg), daily. --08:44 Aurelia Jang R.N. --END STRIKE>> The following entry was struck and corrected by Idania Umanzor R.N., 10:38 (08/25/16) Reason for correction - other(correction). [facility] Potassium Oral 10 mEq, daily. --08:44 Aurelia Jang R.N. --END STRIKE>> The following entry was struck and corrected by Idania Umanzor R.N., 10:37 (08/25/16) Reason for correction - other(correction). <<[facility] ENTRY-- MAGOX. --09:21 Aurelia Jang R.N. --END STRIKE>> The following entry was struck and corrected by Idania Umanzor R.N., 10:34 (08/25/16) Reason for correction - other(correction). <<[facility]-- Furosemide Oral 40 mg, daily (and twice weekly 60mg ). --08:44 Aurelia Jang R.N. --END STRIKE>> The following entry was struck and corrected by Idania Umanzor R.N., 10:33 (08/25/16) Reason for correction - other(correction). <<[facility] ENTRY-- CloNIDine HCl Oral. --08:44 Aurelia Jang R.N. --END STRIKE>> The following entry was struck by Aurelia Jang R.N., 09:21 (08/25/16) Reason - other. <<[facility] ENTRY-- Tylenol Oral 325 mg, daily. --08:44 Aurelia Jang R.N. --END STRIKE>> The following entry was struck and corrected by Aurelia Jang R.N., 09:20 (08/25/16) Reason for correction - other(correction). <<[facility] ENTRY-- Furosemide Oral 40 mg, daily. --08:44 Aurelia Jang R.N. --END STRIKE>>. Allergies Iodine. Definite Moderate(rash) Novacaine . Definite Moderate(rash) --08:44 Aurelia Jang R.N. History Arrived by EMS. Historian: patient. Unaccompanied. Primary physician (Dr. Taylor). This is a recurrent problem. Treatment SUPERVISOR AREA: None. PAST MEDICAL HX: Immunizations: status is unknown. SOCIAL HX: Never smoker. No alcohol use or drug use. ABUSE ASSESSMENT: Abuse assessment: The patient was asked "Do you feel safe in your home?" and "Has anyone hurt you or threatened to hurt you?". No report of abuse. SELF HARM ASSESSMENT: A self harm assessment was performed. NUTRITIONAL RISK ASSESSMENT: The nutritional risk assessment revealed no deficiencies. FUNCTIONAL ASSESSMENT: Functional assessment: no impairments noted. LEARNING NEEDS ASSESSMENT: The learning needs assessment revealed no barriers. --08:46 Aurelia Jang R.N. FALL RISK ASSESSMENT: Fall risk assessment completed. Risk factors identified include dizziness and patient medications, age greater than 65 years, history of fall and impairment of hearing. Fall interventions initiated. Patient placed on stretcher. Side rails up x2. Brakes on Bed in low position. Patient visible from nurses' station and identified as a fall risk by ID band. Family at bedside. Call light in reach of patient. Instructed not to get up without assistance. --11:07 Aurelia Jang R.N. PROBLEMS: Congestive Heart Failure. Tricuspid valve disorder. Depression. Basal cell carcinoma of skin. Bipolar Disorder. Herpes Zoster. Sinus Tachycardia. Breast Cancer. Hyperkalemia. Hyponatremia. UTI - Urinary Tract Infection. Dehydration. Renal Insufficiency. Heart Disease. Palpitations. Gastroesophageal Reflux. Hypertension. --08:45 Aurelia Jang R.N. Interventions ID band on patient. Transported via stretcher. --08:46 Aurelia Jang R.N. PHYSICAL ASSESSMENT Ambulatory to room. GENERAL / NEURO / PSYCH: Alert. Appears in no acute distress. HEENT: No facial asymmetry noted. Mucous membranes are pink. RESPIRATORY: Respirations not labored. CVS: Capillary refill less than 2 seconds. Pulses within normal limits. GI / : Abdomen soft and nontender. SKIN: Skin intact. Skin is warm and dry. --08:46 Aurelia Jang R.N. 09:59 08/25/16. EXTREMITIES: Sensation intact. Skin is non-tender on the extremities. No upper extremity edema. No lower extremity edema. --09:59 Idania Umanzor R.N. NURSING PROGRESS NOTES porcelain buildup assistant, pulse oximeter and NIBP monitor placed on patient; fly rail operator- Lead II; monitor alarms on. Patient gowned. Two patient identifiers checked. Call light placed in reach. Side rails up x 2. Bed placed in lowest position. Brakes of bed on. Patient ready for evaluation- chart flagged. --08:46 Aurelia Jang R.N. EKG time: (08:59). EKG was performed by a tech and shown to the ED physician. --09:03 Crystal Vania 09:14 08/25/2016 One (1) unsuccessful IV access attempt including the left hand. Applied bandaid and manual pressure. --09:14 Aurelia Jang R.N. 09:19 08/25/2016 Site #1 started via IV in the right forearm with an 22g angiocath, with aseptic technique and good blood return; one attempt. Blood drawn: rainbow set and cultures x1. Labeled in the presence of the patient and sent to the lab. Saline lock flushed with 10 mL saline. --09:19 Aurelia Jang R.N. Patient ID band checked for patient name, birthdate and medical record number: patient confirmed. Instructions provided to collect clean catch urine and patient verbalized understanding. Catheterized urine collected with return of yellow-colored clear urine; sample sent to lab for urinalysis. Specimen labeled in the presence of the patient. --09:30 Aurelia Jang R.N. 09:05 08/25/2016 Two (2) unsuccessful IV access attempts including the left antecubital space. Applied bandaid and manual pressure. --09:49 Idania Umanzor R.N. 09:50 08/25/16. ( xray at bedside). --09:50 Idania Umanzor R.N. 09:56 08/25/16. BP: 164/46. HR: 44. RR: 12. O2 saturation: 100%. Pain level now: 0/10. --09:58 Idania Umanzor R.N. 09:58 08/25/16. --09:58 Idania Umanzor R.N. 10:22 08/25/16. Critical value relayed to ED by lab. Critical value received by this RN. Na: 113. Critical value read back. Verified lab result and patient ID. ED physician notifed of critical value. --10:22 Idania Umanzor R.N. <<[facility] ENTRY-- 10:57 08/25/2016 Started bag #1 1000 mL IV Fluids IV NS (Saline); at 60 mL/hr over 6 hour(s) via site #1 via IV pump. Allergies verified and confirmed 5 rights. IV patency established. IV site checked: no pain, redness, or swelling. IV flushed thoroughly pre- and post-medication administration. --11:12 Idania Umanzor R.N. --END STRIKE>> Change to Details. --15:51 Idania Umanzor R.N. ( overview faxed to ICU.). --11:17 Marlen Chew ER Tech1 11:50 08/25/16. BP: 157/46. HR: 47. RR: 13. O2 saturation: 96%. Pain level now: 0/10. --11:53 Idania Umanzor R.N. 10:57 08/25/2016 Started bag #1 1000 IV Fluids IV NS (Saline); at 60 mL/hr over 6 hour(s) via site #1 via IV pump. Allergies verified and confirmed 5 rights. IV patency established. IV site checked: no pain, redness, or swelling. IV flushed thoroughly pre- and post-medication administration (about 90mL infused in ED. IV NS transported with patient to CCU.). --15:51 Idania Umanzor R.N. 11:54 08/25/16. Patient transported to CT by stretcher with nurse and tech. (11:30 AM). Patient returned from CT by stretcher with nurse. (11:40). ( Accompanied patient on stretcher to CT with a monitor. HR remained in the 30s and 40s.). --11:54 Idania Umanzor R.N. 11:55 08/25/16. ( Patient given sandwich.). --11:55 Idania Umanzor R.N. Intake & Output 09:58 08/25/16. Urine: 300 mL, with return of yellow-colored clear urine. --09:58 Idania Umanzor R.N. DISPOSITION / DISCHARGE <<STRICKEN ENTRY-- late entry - 10:10. Admitted to the Critical Care Unit (10:10 AM). Transported via stretcher by nurse with monitor, IV and O2. Patient's personal items include: purse; items were given to the family and transported with the patient. Collection of belongings was witnessed by 1 nurse. --15:46 Idania Umanzor R.N. --END STRIKE>> Correction --15:47 Idania Umanozr R.N. 15:49 08/25/16. Admitted to the Critical Care Unit (12:00 PM). Transported via stretcher by nurse with monitor, IV and O2. Report was given to a nurse via a phone call. Report included patient's care, treatment, medications, reviewed medication reconcilliation, and condition (including any recent changes or anticipated changes). All questions were answered. Report was acknowledged and care was transferred. (to MAXIM Couch). Bed obtained (301). Patient's personal items include: purse; items were given to the family and transported with the patient. Collection of belongings was witnessed by 1 nurse. --15:49 Idania Umanzor R.N. 11:50 08/25/16. BP: 157/46. HR: 47. RR: 13. O2 saturation: 96%. Pain level now: 0/10. --15:49 Idania Umanzor R.N. Locked/Released at 08/25/2016 19:12 by Idania Umanzor R.N.
--- NOTE | 2016-08-25 12:21 | DIAGNOSTIC IMAGING REPORT ---
PROCEDURE: CT HEAD WITHOUT CONTRAST INDICATION: MENTAL STATUS CHANGE TECHNIQUE: Noncontrast axial images with sagittal and coronal reformations. COMPARISON: None. FINDINGS: Brain and ventricles are normal. No evidence of an acute process or hemorrhage. Cavernous carotid vascular calcifications. There is mild mucosal thickening in the ethmoid air cells in the maxillary sinuses (acute versus chronic). Sinuses and mastoids are otherwise normal. IMPRESSION: 1. Negative head CT. No evidence of intracranial abnormality. 2. Mild mucosal thickening in the ethmoid air cells and maxillary sinuses (acute versus chronic). 3. Findings discussed with Dr. Leoncio Encinas at [address] scans at this facility use dose modulation, iterative reconstruction, and/or weight-based dosing when appropriate to reduce radiation dose to as low as reasonably achievable.
--- NOTE | 2016-08-25 12:22 | DIAGNOSTIC IMAGING REPORT ---
PROCEDURE: XR CHEST 1 VIEW INDICATION: COUGH TECHNIQUE: Portable AP view (0945 hours). COMPARISON: Compared to chest x-ray on 07/05/2016. FINDINGS: Lungs are clear. Mild cardiomegaly and pulmonary vascular congestion. Mediastinum is normal. Surgical clips overlying the right axilla. IMPRESSION: 1. Mild cardiomegaly and borderline pulmonary vascular congestion. Consider occult or chronic congestive heart failure. 2. Otherwise negative chest. 3. Findings discussed with Dr. Leoncio Encinas.
[2016-08-25] MEDS ORDERED: AVAPRO300 MG PO (12:25)
[2016-08-25] MEDS ORDERED: AMLODIPINE BES2.5 MG PO (13:37)
[2016-08-25] MEDS ORDERED: ANASTROZOLE1 MG PO (13:38)
[2016-08-25] MEDS ORDERED: ASPIRIN ADULT L81 M1 PO (13:39)
[2016-08-25] MEDS ORDERED: CALCIUM + D600 MG PO (13:40)
[2016-08-25] MEDS ORDERED: CLONIDINE HCL0.1 MG PO (13:41)
[2016-08-25] MEDS ORDERED: GLUCOSAMINE500 M1 PO (13:42)
[2016-08-25] MEDS ORDERED: LASIX20 MG PO (13:42)
[2016-08-25] MEDS ORDERED: SEROQUEL25 MG PO (13:43)
[2016-08-25] MEDS ORDERED: POTASSIUM CHLO10 ME2 PO (13:43)
[2016-08-25] MEDS ORDERED: METOLAZONE5 MG PO (13:43)
[2016-08-25] MEDS ORDERED: ACETAMINOPHEN325 MG PO (13:43)
[2016-08-25] MEDS ORDERED: FISH OIL500 MG (13:44)
[2016-08-25] MEDS ORDERED: MAGNESIUM500 M1 PO (13:45)
--- NOTE | 2016-08-25 14:12 | HISTORY AND PHYSICAL ---
ADMITTED: 08/25/2016 HISTORY OF PRESENT ILLNESS: This is an 89-year-old woman, well known to me, who presents to the emergency department this morning simply feeling bad and weak. She has felt this way gradually over the last week or two. She had some slight emesis this morning and stomach upset when she got up and felt very weak after this. She called 911 and was brought into the emergency department. I had seen her in my office yesterday afternoon for suture removal following skin biopsies done about a week or so ago. The patient complained of feeling just generally tired and weak at that point and blood tests were done at my office. So far, I have not had a report back from the lab on these results. After she presented to the emergency department, she was noted to have a heart rate in the 30s at times. She also had blood testing done showing sodium of 113. She had an EKG showing probable atrial flutter with quite a variable slow response. Due to her heart rate and profound hyponatremia, she was felt to be a candidate for admission. MEDICAL/SURGICAL HISTORY: Past medical history: Remarkable for longstanding hypertension. She has been quite sensitive to beta blockers in the past and has had some problems with bradycardia related to this. She has also had some mild congestive heart failure at times related to hypertension and heart rate issues in the past. She has had an echocardiogram showing some mild aortic outflow tract narrowing as well as a very small atrioseptal defect. Other problems include right breast cancer diagnosed in about 2010, colon polyps, chronic renal insufficiency, osteoporosis and restless leg symptoms as well as problems with depression. She also has had a tendency towards episodic urinary tract infections. Surgical history: Remarkable for remote tonsillectomy and appendectomy. She has had 3 daughters with normal deliveries. She has had a hysterectomy done a number of years ago. She had a right breast lumpectomy for breast cancer in 2010. She has had colonoscopies and has also had cataract surgery. MEDICATIONS: 1. Include irbesartan 300 mg tablet 1/2 tablet twice daily. 2. Amlodipine 2.5 mg twice daily. 3. Anastrozole 1 mg daily. 4. Aspirin 81 mg daily. 5. Sertraline 12.5 mg daily. 6. Magnesium oxide 500 mg 3 times daily. 7. Glucosamine for arthritis 8. Clonidine 0.1 mg daily for blood pressure prescribed by Dr. Malick Savage. 9. Furosemide 20 mg strength 3 tablets on Saturday and and 2 tablets other days. 10. Metolazone 2.5 mg taken 1-3 times a week for increased fluid retention. 11. Potassium one twice daily. 12. Aspirin 81 mg daily. 13. The patient is also taking vitamin D3 at 2000 units daily. ALLERGIES: 1. Include BETA BLOCKERS, which causes marked bradycardia. 2. IODINE sensitivity. 3. NOVOCAIN sensitivity. SOCIAL HISTORY: She indicates that she currently lives alone in a home that she has been in for a number of years. She has 2 daughters who live locally who are quite supportive. She has a daughter who about 2 or 3 years ago of basically alcoholism. This patient did drink a fair amount of alcohol when she was younger, but has not had any alcohol to drink in the last 10 years to 15 years. She has never been a smoker. FAMILY HISTORY: Remarkable for a father who in his 50s or 60s of bladder cancer. He also may have had some heart problems. The patient's mother at age 93. She had had uterine cancer but of heart problems and old age. She has 2 sisters who developed leukemia and and 1 sister who developed alcoholic liver disease and from this. She has a brother who from bladder cancer. REVIEW OF SYSTEMS: HEENT: Has been okay. Respiratory has been okay with no major shortness of breath. She has had a slight cough now and then. Cardiovascular: As noted above. She has had no major edema recently. She has had no major chest pain other than some sharp stabbing pains now and then which last just seconds. Gastrointestinal: Remarkable for some slight stomach upset at times and some problems intermittently with loose stools. Genitourinary: Okay currently with no major problems passing urine and no dysuria. Musculoskeletal: Remarkable for generalized weakness, but no focal problems. Neurologic: Remarkable for some forgetfulness and mild memory difficulties and concentration difficulties. 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 Psychiatric: Remarkable for some depression issues. PHYSICAL EXAMINATION: GENERAL: Reveals the patient to be alert and oriented x3. Cranial nerves are normal. VITAL SIGNS: Blood pressure is in the 150-160/70 range. Pulse is in the 30-60 range. HEENT: Head is normal. Ear canals and tympanic membranes are okay. The patient does have hearing aids. Eyes show extraocular movements to be normal. Fundi reveal no obvious hemorrhages or exudates. Nose and throat are clear. The patient has dentures. NECK: Supple. Carotid pulses normal. No distinct bruits are heard. CHEST: Clear to auscultation and percussion with no rales, rhonchi, or wheezes. BREASTS: Show no distinct masses on either side. There is no axillary adenopathy. HEART: Reveals normal S1 and S2 with a grade 2 to 3/6 systolic murmur along left sternal border. No S3 or S4 is heard. ABDOMEN: Nontender with no organomegaly or mass. Bowel tones are normal. PELVIC: Exam is not done. RECTAL: Exam is not done. EXTREMITIES: Show normal range of motion. There is trace edema. +2 dorsalis pedis pulses are noted. Range of motion of extremities is normal. NEUROLOGIC: Reveals the patient to be alert and oriented x3. Cranial nerves are symmetric. Motor and sensory exams are basically symmetric and nonfocal. SKIN: Shows small basal cell carcinomas on the left mid forehead area and right lower anterior neck area. No other significant abnormalities are noted. PSYCHIATRIC: Remarkable for some depressed affect at times. LAB/IMAGING: Laboratory studies show hemoglobin to be 12.2, hematocrit is 36.2. White blood cell count is 8300. Sodium is 113, potassium is 5.7, chloride 79, CO2 of 25, glucose 128, creatinine 1.5, BUN 58. CPK is 138. Troponin I is less than 0.05. Total bilirubin is 0.5. SGOT is 34, SGPT is 38. Magnesium is 1.8. TSH is 5.46. BNP is 699. Chest x-ray shows borderline cardiomegaly with no distinct infiltrate. Pulmonary vasculature is somewhat engorged. Brain CT scan shows no evidence of acute abnormality. EKG shows probable atrial flutter with variable block with no major ST-segment depressions or elevations. IMPRESSION: 1. The patient is presenting with profound hyponatremia, which is most likely due to use of diuretics and probable poor oral intake of food and high intake of fluids, particularly water. She is also showing significant bradycardia due to an atrial flutter and variable block problem. 2. Other problems include renal insufficiency of a mild degree, hyperkalemia of a mild degree, history of hypertension with current elevated blood pressure readings, history of atrioseptal defect of a small size and a history of breast cancer. CODE STATUS: The patient and her daughter and I discussed code status. The patient would like to proceed with the pacemaker if this seemed to be indicated. Other than this, if something else major happened to her such as a heart attack and her heart suddenly stopped, she would not want anything heroic to be started. PLAN: The patient is admitted for correction of low sodium and this will be done starting with a low-flow of normal saline. She will continue on irbesartan and may continue on the amlodipine if this seems to be necessary. For the time being , however, will be held. She will continue with telemetry monitoring. If she becomes symptomatic with bradycardia, she will be paced transcutaneously and arrangements will be made to transferred her to the document processor for consideration of a permanent pacemaker. If she continues to be bradycardic and weak, then she may need to have a pacemaker as well. She does not seem to be on any medications that would trigger the bradycardia, other than perhaps electrolyte abnormalities contributing to this. Her problems with restless legs, basal cell carcinomas, and depression are all fairly stable. She will be continued on sertraline during her hospitalization and gabapentin if needed for restless leg symptoms. She takes this usually at night and this will be given to her in the evening.
[2016-08-25] MEDS ORDERED: SERTRALINE HCL25 MG PO (16:36)
[2016-08-25] MEDS ORDERED: DEBROX6.5 % OT (16:39)
[2016-08-26] VITALS (13 sets, daily range): BP systolic 98–164; BP diastolic 35–67
--- NOTE | 2016-08-26 11:49 | ED MED RECONCILIATION SUMMARY ---
Patient: SASCHA DUNN Medication Reconciliation Report [facility] VisitID: [id number] [address] [place] [address] 89y, F Registration Date/Time: 08/25/2016 Weight: 70.3 kg Height/Length: 63 in. BMI: 27.5 ALLERGIES: Iodine, Novacaine The patient's Home Medications are listed below: THE FOLLOWING MEDICATIONS NEED TO BE RECONCILED: meds pulled from prior list daughter to bring in med list AmLODIPine Besylate Oral 2.5 mg, 1-2 times daily Aspir-81 Oral (81 mg) 1 tablet, daily Calcium + D3 Oral CloNIDine HCl Oral (0.1 mg), daily Furosemide Oral 40 mg, daily Glucosamine Oral, unknown dose Irbesartan Oral 300 mg, 1/2-1 tab daily MAGOX 800mg, 3x a day Metolazone Oral (2.5 mg) Potassium Oral 10 mEq, 2x a day The source(s) of the original Home Medication information: Not obtained. The following Medications were given to the patient in the Emergency Department: IV NS IV Fluids bolus 0, then 60 mL/hr, administered: 08/25/2016 10:57:00 AM The following Medications were prescribed to the patient: None.
--- NOTE | 2016-08-26 11:49 | ED MAR SUMMARY ---
..... Medication Administration Record [facility] [address] [place] [address] Patient: SASCHA DUNN Visit ID: [id number] 89y, F Weight: 70.3 kg Height/Length: 63 in BMI: 27.5 ALLERGIES: Iodine, Novacaine Start 10:57 08/25/2016 Idania Umanzor R.N. Medication Administered: IV NS (SALINE), Dose: IV Fluids over 6 hour(s), Rate: 60 mL/hr, Dispensed: 1000 mL bag, Site: #1 right forearm. Medication Ordered: IV NS : initial bolus none -, then 60 ml/hr for 6h (NOW); Routine.
--- NOTE | 2016-08-26 11:49 | ED MED RECONCILIATION SUMMARY ---
Patient: SASCHA DUNN Medication Reconciliation Report [facility] VisitID: [id number] [address] [place] [address] 89y, F Registration Date/Time: 08/25/2016 Weight: 70.3 kg Height/Length: 63 in. BMI: 27.5 ALLERGIES: Iodine, Novacaine The patient's Home Medications are listed below: THE FOLLOWING MEDICATIONS NEED TO BE RECONCILED: meds pulled from prior list daughter to bring in med list AmLODIPine Besylate Oral 2.5 mg, 1-2 times daily Aspir-81 Oral (81 mg) 1 tablet, daily Calcium + D3 Oral CloNIDine HCl Oral (0.1 mg), daily Furosemide Oral 40 mg, daily Glucosamine Oral, unknown dose Irbesartan Oral 300 mg, 1/2-1 tab daily MAGOX 800mg, 3x a day Metolazone Oral (2.5 mg) Potassium Oral 10 mEq, 2x a day The source(s) of the original Home Medication information: Not obtained. The following Medications were given to the patient in the Emergency Department: IV NS IV Fluids bolus 0, then 60 mL/hr, administered: 08/25/2016 10:57:00 AM The following Medications were prescribed to the patient: None.
--- NOTE | 2016-08-26 11:49 | ED MAR SUMMARY ---
..... Medication Administration Record [facility] [address] [place] [address] Patient: SASCHA DUNN Visit ID: [id number] 89y, F Weight: 70.3 kg Height/Length: 63 in BMI: 27.5 ALLERGIES: Iodine, Novacaine Start 10:57 08/25/2016 Idania Umanzor R.N. Medication Administered: IV NS (SALINE), Dose: IV Fluids over 6 hour(s), Rate: 60 mL/hr, Dispensed: 1000 mL bag, Site: #1 right forearm. Medication Ordered: IV NS : initial bolus none -, then 60 ml/hr for 6h (NOW); Routine.
--- NOTE | 2016-08-26 11:49 | ED DISCHARGE INSTRUCTIONS ---
Patient: SASCHA DUNN General Instructions [facility] VisitID: [id number] [address] [place] [address] 89y, F Registration Date/Time: 08/25/2016 Acute generalized weakness. Critical hyponatremia Hyperkalemia Pre-renal azotemia due to dehydration Bradycardia in the 30's Atrial flutter with variable block. (Electronically signed by Leoncio Encinas MD 08/26/2016 11:49)
--- NOTE | 2016-08-26 11:49 | ED DISCHARGE INSTRUCTIONS ---
Patient: SASCHA DUNN General Instructions [facility] VisitID: [id number] [address] [place] [address] 89y, F Registration Date/Time: 08/25/2016 Acute generalized weakness. Critical hyponatremia Hyperkalemia Pre-renal azotemia due to dehydration Bradycardia in the 30's Atrial flutter with variable block. (Electronically signed by Leoncio Encinas MD 08/26/2016 11:49)
[2016-08-27 02:10] VITALS: BP 139/55
[2016-08-27 07:30] VITALS: BP 159/77
[2016-08-27 09:02] VITALS: BP 160/89
--- NOTE | 2016-08-27 11:54 | DISCHARGE SUMMARY ---
ADMIT DATE: 08/25/2016 DISCHARGE DATE: 08/27/2016 ADMITTING DIAGNOSES: 1. Bradycardia, symptomatic 2. Hyponatremia secondary to increased use of furosemide and metolazone as diuretics DISCHARGE DIAGNOSES: 1. Variable heart block, including atrial flutter with slow ventricular response; episodes of third-degree heart block and episodes of second degree Mobitz type 2 heart block and basic rhythm of first-degree heart block 2. Other problems include longstanding hypertension 3. History of right breast carcinoma 4. Osteoarthritis 5. 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 At the time of her admission, she had a markedly low sodium of 113 and evidence of some renal insufficiency and dehydration. Magnesium level was okay. She had a normal troponin and had a BNP of 699. She was admitted to the ICU on telemetry. Her sodium was corrected. She improved her heart rate some, but continued to have episodes at times third- degree heart block, at times second degree Mobitz 2 heart block and first-degree heart block. She was maintained on Losartan for help with blood pressure control. Diuretics were not given, and no beta blockers or calcium channel blockers were given. On the morning of transfer, she continues to show an EKG with Mobitz type 2 block. Considering this, and considering the weakness that she has at times, she is a candidate for pacemaker placement. I have discussed this with Dr. Stephany Knight, Packing Machine Inspector at [facility] in [place]. She agrees with this. Current lab results show white blood cell count to be 7500, hemoglobin is 10.7, hematocrit is 32.4. Sodium is 135, potassium 4.3, chloride 101, CO2 of 25, glucose 89, creatinine improved to 1.2 and BUN improved to 30. Magnesium is 1.7. The patient is alert and stable and feeling okay, with no breathing difficulties or chest pain. DISCHARGE INSTRUCTIONS/MEDICATIONS: She is agreeable to the transfer. MEDICATIONS: Current medications include: 1. Magnesium chloride 535 mg b.i.d. 2. Aspirin 81 mg daily. 3. Losartan 25 mg b.i.d. 4. Sertraline 12.5 mg daily for depression. 5. The patient has a Hep-Lock in place and will be transferred by ambulance.
== END 2016-08-27 09:30 | disposition short-term general hospital (02) | DRG 309 ==
LOC: ED SRH 08:39 → TRANS SRH 10:45 → CC SRH 12:51 → TRANS SRH 12:51 → CC SRH 12:51
PROVIDERS: ADMIT Emergency Medicine
DX: I44.2 Atrioventricular block, complete (principal); E87.1 Hypo-osmolality and hyponatremia; Q21.1 Atrial septal defect; E86.0 Dehydration; R39.2 Extrarenal uremia; I48.92 Unspecified atrial flutter; R41.0 Disorientation, unspecified; R53.1 Weakness; I11.0 Hypertensive heart disease with heart failure; I50.9 Heart failure, unspecified; Z85.3 Personal history of malignant neoplasm of breast
CPT/HCPCS: 81460; 85241; 85244; 90004; 90047; 90074; 90100; 90616; 91320; 92132; 92610; 92720; 93140; 95059